=== PATIENT | female | born 2000 | race Two or more races ===

== ENCOUNTER 2018-02-09 10:21 | Emergency (ER) | payer SELFPAY ==
[~2018-02-09] VITALS: Ht 157.5 cm; Wt 64.9 kg
[2018-02-09 10:35] VITALS: BP 114/69
[2018-02-09] MEDS ORDERED: LIDOCAINE 1% PF 2 ML VIAL. INJ ONE (11:15)
[2018-02-09] MEDS ORDERED: HYDR-2758 PO (12:25)
[2018-02-09] MEDS ORDERED: SULF1TAB24 PO (12:25)
[2018-02-09] MEDS ORDERED: CEPH500T PO (12:25)
--- NOTE | 2018-02-09 12:25 | PHYS DOC ---
Past Medical History Past Medical History: No Pertinent History Past Surgical History: No Surgical History Alcohol Use: None Drug Use: None Adult General Chief Complaint Chief Complaint: ABSCESS HPI HPI Patient is a 17 year old female who presents with complaints of abscess near gluteal cleft. Pt states that she had an abscess in the same site back in June. Her current symptoms began one week ago. She denies any drainage from the site, fever, body aches, or injury. States there is no pain unless the area is touched or pressure is applied to the area, then the pain shoots to a 10 out of 10 on the pain scale. She states that her LMP was on 02/07/18 and reports normal bowel movements. Review of Systems Review of Systems Constitutional: Denies fever or chills [] GI: Denies abdominal pain, nausea, vomiting, or diarrhea [] Musculoskeletal: Denies back pain Integument: Denies rash or skin lesions, reports swollen tender area to gluteal cleft for the last week, hx of previous abscess [] Neurologic: Denies headache, focal weakness or sensory changes [] All other systems were reviewed and found to be within normal limits, except as documented in this note. Current Medications Current Medications Current Medications Medications (Trade) Dose Ordered Sig/Mallory Start Time Stop Time Status Last Admin Dose Admin Acetaminophen/ Hydrocodone Bitart (Lortab 5/325) 1 tab 1X ONCE 02/09/18 12:30 02/09/18 12:31 DC 02/09/18 12:36 1 TAB Lidocaine HCl (Xylocaine-Mpf 1% 2ml Vial) 4 ml 1X ONCE 02/09/18 11:15 02/09/18 11:16 DC 02/09/18 12:11 4 ML Allergies Allergies Allergies Coded Allergies Type Severity Reaction Last Updated Verified No Known Drug Allergies 02/09/18 No Physical Exam Physical Exam Constitutional: Well developed, well nourished, no acute distress, non-toxic appearance. [] HENT: Normocephalic, atraumatic, bilateral external ears normal, nose normal. [] Eyes: normal Lungs & Thorax: respirations even and unlabored Skin: Warm, dry, indurated area with central pustule noted to left side of upper gluteal cleft consistent with pilonidal cyst Neurologic: Alert and oriented X 3, normal motor function, normal sensory function, no focal deficits noted. [] Psychologic: Affect normal, judgement normal, mood normal. [] Current Patient Data Vital Signs Vital Signs Date Time Temp Pulse Resp B/P (MAP) Pulse Ox O2 Delivery O2 Flow Rate FiO2 02/09/18 10:35 98.4 109 18 114/69 (84) 100 Room Air 98.4 EKG EKG [] Radiology/Procedures Radiology/Procedures [] Course & Med Decision Making Course & Med Decision Making Pertinent Labs and Imaging studies reviewed. (See chart for details) Pilonidal cyst. Incision and drainage in department. Prescriptions for keflex and bactrim. Follow up with Dr. Garcia, return to the ER in 48 hours for wound recheck. Patient verbalized an understanding of home care, medications, follow- up, and return to ED instructions and was in agreement with the plan of care. [] Dragon Disclaimer Dragon Disclaimer This electronic medical record was generated, in whole or in part, using a voice recognition dictation system. Departure Departure Impression: Primary Impression: Pilonidal cyst with abscess Disposition: HOME, SELF-CARE Condition: STABLE Referrals: NO PCP (PCP) BALA GARCIA MD Patient Instructions: Pilonidal Cyst, Care After Additional Instructions: Keep the area clean and dry, leave the packing that was placed in the ER in place until follow up wound check in [address] Garcia's office to schedule follow-up, return to the ER if your symptoms worsen. Scripts Hydrocodone Bit/Acetaminophen (HYDROCODONE-APAP 5-325 ) 1 Each Tablet 1 TAB PO PRN Q6HRS PRN for PAIN, #6 TAB 0 Refills Prov: ARTUR MAGUIRE ORNAMENT SETTER 02/09/18 Cephalexin (CEPHALEXIN) 500 Mg Tablet 1 TAB PO QID for 7 Days, #28 TAB 0 Refills Prov: ARTUR MAGUIRE ORNAMENT SETTER 02/09/18 Sulfamethoxazole/Trimethoprim (BACTRIM DS TABLET) 1 Each Tablet 1 TAB PO BID, #14 TAB Prov: ARTUR MAGUIRE ORNAMENT SETTER 02/09/18 Incision and Drainage Incision and Drainage : Site: top of the gluteal cleft toward the left side Blade Size: 11 I & D Procedure: betadine prep, sterile drapes applied, gauze wick placed ( iodoform gauze) Progress 4 ml of 1% lidocaine was administered for local anesthesia, the site was then incised with #11 blade scalpel. Pt tolerated the procedure well, will return in 48 hours for wound recheck ARTUR MAGUIRE APRN Feb 09, 2018 12:25
[2018-02-09] MEDS ORDERED: HYDROcodone/APAP 5/325MG 1 TAB TABLET PO ONE (12:30)
== END 2018-02-09 12:39 | disposition home or self-care (01) ==
LOC: ER 10:21
DX: L05.01 Pilonidal cyst with abscess (principal)
CPT/HCPCS: 10060; 10080; 87071; 87075; 99284

== ENCOUNTER 2018-02-11 14:58 | Emergency (ER) | payer SELFPAY ==
[~2018-02-11] VITALS: Ht 165.1 cm; Wt 64.9 kg
[~2018-02-11 14:58] MED LIST: CEPH500T PO; HYDR-2758 PO; SULF1TAB24 PO
[2018-02-11 16:40] VITALS: BP 119/71
--- NOTE | 2018-02-11 16:54 | PHYS DOC ---
Past Medical History Past Medical History: No Pertinent History Past Surgical History: No Surgical History Alcohol Use: None Drug Use: None Adult General Chief Complaint Chief Complaint: WOUND CHECK HPI HPI Patient is a 17 year old female who presents to the emergency Department today with need for a wound recheck area and patient was seen in the emergency department 2 days ago and had a pilonidal cyst lanced. She states she is here to have the packing removed. Patient states that the area has continued to drain some bloody pus but that has slowed down today. She states her pain is being controlled by the hydrocodone that was prescribed. Patient states she has not set up a follow-up appointment with surgery yet, but she has been taking all of the medications as prescribed. She states that the area remains tender to touch. She denies any fever. Review of Systems Review of Systems Constitutional: Denies fever or chills [] Integument: open incision site to left side of upper gluteal cleft after pilonidal cyst drained 2 days ago Neurologic: Denies headache, focal weakness or sensory changes [] All other systems were reviewed and found to be within normal limits, except as documented in this note. Allergies Allergies Allergies Coded Allergies Type Severity Reaction Last Updated Verified No Known Drug Allergies 02/09/18 No Physical Exam Physical Exam Constitutional: Well developed, well nourished, no acute distress, non-toxic appearance. [] HENT: Normocephalic, atraumatic, bilateral external ears normal, nose normal. [] Eyes: normal Lungs & Thorax: Respirations even and unlabored Abdomen: Bowel sounds normal, soft, no tenderness, no masses, no pulsatile masses. [] Skin: Warm, dry, no erythema, no rash; open incision site with packing intact noted to upper portion of the gluteal cleft on the left side, bandage in place has scant amount of bloody drainage there is no surrounding erythema or warmth. [] Neurologic: Alert and oriented X 3, normal motor function, normal sensory function, no focal deficits noted. [] Psychologic: Affect normal, judgement normal, mood normal. [] EKG EKG [] Radiology/Procedures Radiology/Procedures Packing was removed from incision site, there was a scant amount of bloody drainage with packing removal. Wound appears to be healing well.[] Course & Med Decision Making Course & Med Decision Making Pertinent Labs and Imaging studies reviewed. (See chart for details) Wound recheck. Packing removal. Patient advised to schedule follow-up with surgery as previously instructed. Continue taking meds as previously prescribed. Return to the emergency room if symptoms worsen. Patient verbalized an understanding of home care, medications, follow-up, and return to ED instructions and was in agreement with the plan of care. [] Dragon Disclaimer Dragon Disclaimer This electronic medical record was generated, in whole or in part, using a voice recognition dictation system. Departure Departure Impression: Primary Impression: Encounter for wound re-check Additional Impression: Encounter for abscess packing removal Disposition: HOME, SELF-CARE Condition: STABLE Referrals: NO PCP (PCP) Patient Instructions: Incision and Drainage, Care After Additional Instructions: Continue taking medications as prescribed. Recommend sitz baths in warm water 2- 3 times a day and as needed for comfort. Call the surgeon on Tuesday to schedule follow-up appointment. Return to the emergency room if her symptoms worsen. Problem Qualifiers ARTUR MAGUIRE APRN Feb 11, 2018 16:54
== END 2018-02-11 17:01 | disposition home or self-care (01) ==
LOC: ER 14:58
DX: Z48.00 Encounter for change or removal of nonsurgical wound dressing (principal)
CPT/HCPCS: 99281